=== PATIENT | female | born 1975 ===

== ENCOUNTER 2017-09-29 03:16 | Emergency (ER) | payer MEDICAID ==
[2017-09-29 03:24] VITALS: BP 92/63; PULSE 73; RESP 22; TEMP 98.2; O2SAT 100
--- NOTE | 2017-09-29 04:16 | C.PDOC ---
History Of Present Illness 41 year old female presents to the ED for evaluation of vaginal itchiness and swelling which began around 5 days ago. Patient also states that she is currently on her menstrual period. Patient denies experiencing similar symptoms in the past. Her PUBLIC HEALTH WORKER was not available so she presents to the ED for further evaluation. Patient denies fever, chills, abdominal pain. Time Seen by Provider: 09/29/17 03:30 Chief Complaint (Nursing): Female Genitourinary History Per: Patient History/Exam Limitations: no limitations Onset/Duration Of Symptoms: Days (5) Current Symptoms Are (Timing): Still Present Quality Of Discomfort: denies: "Pain" Associated Symptoms: denies: Fever, Chills Additional History Per: Patient Last Menstral Period: current Past Medical History Reviewed: Historical Data, Nursing Documentation, Vital Signs Vital Signs: Last Vital Signs Temp 98.2 F 09/29/17 03:22 Pulse 73 09/29/17 03:22 Resp 22 09/29/17 03:22 BP 92/63 L 09/29/17 03:22 Pulse Ox 100 09/29/17 05:55 - Medical History PMH: No Chronic Diseases Surgical History: No Surg Hx Family History: States: Unknown Family Hx - Social History Hx Alcohol Use: Yes Hx Substance Use: No - Immunization History Hx Tetanus Toxoid Vaccination: No Hx Influenza Vaccination: No Hx Pneumococcal Vaccination: No Review Of Systems Constitutional: Negative for: Fever, Chills Gastrointestinal: Negative for: Abdominal Pain Genitourinary: Positive for: Other (vaginal itchiness and swelling ) Physical Exam - Physical Exam Appears: Non-toxic, No Acute Distress Skin: Normal Color, Warm, Dry Head: Atraumatic, Normacephalic Eye(s): bilateral: Normal Inspection Oral Mucosa: Moist Neck: Supple Chest: Symmetrical, No Deformity, No Tenderness Cardiovascular: Rhythm Regular, No Murmur Respiratory: Normal Breath Sounds, No Rales, No Rhonchi, No Wheezing Gastrointestinal/Abdominal: Soft, No Tenderness Pelvic: Vaginal Bleeding (menstrual period ), Other (labial swelling and erythema noted ) Extremity: Normal ROM, Capillary Refill (less than 2 seconds ) Neurological/Psych: Oriented x3, Normal Speech, Normal Cognition ED Course And Treatment O2 Sat by Pulse Oximetry: 100 (on RA) Pulse Ox Interpretation: Normal Progress Note: Diflucan PO given. Urine test is negative. Finger stick glucose levels are within normal limits. On re-examination, patient is resting comfortably, showing no signs of distress and is stable for discharge. Patient is advised to follow up with her PMD and/or PUBLIC HEALTH WORKER within 1-2 days for further evaluation. Advised to return to the ED if symptoms persist or worsen. Disposition - Disposition Disposition: HOME/ ROUTINE Disposition Time: 04:15 Condition: STABLE Additional Instructions: Follow up with your OBGYN within 1-2 days. Return to ED if feel worse. Prescriptions: Fluconazole [Diflucan] 150 mg PO ONCE #1 tab Metronidazole [Metrogel-Vaginal] 1 ea VG QPM 7 Days #7 gel Instructions: Vaginitis Forms: [employer] (Armenian) - Clinical Impression Clinical Impression: Vaginitis - PA / PRINCIPAL ARCHITECT / Resident Statement MD/DO has reviewed & agrees with the documentation as recorded. - Scribe Statement The provider has reviewed the documentation as recorded by the Scribe (Demetrice Tucker) All medical record entries made by the Scribe were at my direction and personally dictated by me. I have reviewed the chart and agree that the record accurately reflects my personal performance of the history, physical exam, medical decision making, and the department course for this patient. I have also personally directed, reviewed, and agree with the discharge instructions and disposition.
== END 2017-09-29 04:27 | disposition home or self-care (01) ==
LOC: C.ER 03:16
DX: N76.0 Acute vaginitis (principal)